=== PATIENT | female | born 1980 | race Caucasian/White ===

== ENCOUNTER 2019-08-24 20:15 | Inpatient (IN) | payer OTHER ==
[2019-08-24] MEDS ORDERED: ALBUTEROL SO4 2.5/IPRATROPIUM 0.5 INH SOL 3 ML VIAL.NEB. NEB ONE ×5 (20:26→22:40)
--- NOTE | 2019-08-24 20:28 | PDOC ---
Rapid Medical Evaluation Chief Complaint: Respiratory Time Seen by Provider: 08/24/19 20:23 Medical Evaluation: Allergies Allergy/AdvReac Type Severity Reaction Status Date / Time No Known Allergies Allergy Verified 08/24/19 20:18 Vital Signs Temp Pulse Resp BP Pulse Ox 99.0 F 122 H 20 125/82 95 08/24/19 20:22 08/24/19 20:22 08/24/19 20:22 08/24/19 20:22 08/24/19 20:22 08/24/19 20:28 08/24/19 20:24 38 year old female with chest congestion, cough and chest pressure started today. denies fever/ chills. denies recent travel, ocp use PE: wheezing, coarse breaths sounds A: reactive airway?/ bronchitis? chest pain P: chest xray ekg duoneb patient to the ER for further management of care. Discharge Disposition - Diagnosis Shortness of breath - Referrals - Patient Instructions - Post Discharge Activity
--- NOTE | 2019-08-24 20:51 | PDOC ---
Documentation entered by Muriel Ross SCRIBE, acting as scribe for Oly Uriarte DO. Oly Uriarte DO: This documentation has been prepared by the anayibe, Muriel Ross SCRIBE, under my direction and personally reviewed by me in its entirety. I confirm that the documentation accurately reflects all work, treatment, procedures, and medical decision making performed by me. Attending Attestation - Resident Resident Name: Osman Kathleen - ED Attending Attestation I have performed the following: I have examined & evaluated the patient, The case was reviewed & discussed with the resident, I agree w/resident's findings & plan, Exceptions are as noted - HPI HPI: 08/24/19 21:26 The patient is a 38-year-old female with a past medical history significant for HTN who presents to the emergency department with a cough and congestion. The patient presents with several days of runny nose, sore throat, cough, congestion , and decreased appetite. The patient was started on amoxicillin, reports having 3 doses, without relief. Denies diarrhea or abdominal pain. Denies new rashes, recent travel, chest pain, shortness of breath, leg swelling/pain, dysuria. - Physicial Exam PE: 08/24/19 21:21 Constitutional: Awake, alert, oriented. No acute distress. Head: Normocephalic. Atraumatic Eyes: PERRL. EOMI. Conjunctivae are not pale. ENT: Mucous membranes are moist and intact. Posterior pharynx clear without exudate or erythema. Uvula midline. Neck: Supple. Full ROM. No lymphadenopathy. Cardiovascular: +Regular rate, Tachycardia. S1, S2 regular. Pulmonary/Chest: +wheezing and coarse breath side to the left chest, diminished breath sounds on the right. Abdominal: Soft and nondistended. There is no tenderness. Back: No CVA tenderness. Musculoskeletal: No edema. No cyanosis. No clubbing. Full range of motion in all extremities. No calf tenderness/cramping. Skin: Skin is warm and dry. No petechiae. No purpura. Neurological: Alert and oriented to person, place, and time. Cranial nerves II -XII are grossly intact. Normal speech. Strength is grossly symmetric. No sensory deficits. Psychiatric: Good eye contact. Normal interaction, affect and behavior. - Medical Decision Making 08/24/19 21:17 I, Dr. Oly Uriarte, DO, attest that this document has been prepared under my direction and personally reviewed by me in its entirety. I further attest, that it accurately reflects all work, treatment, procedures and medical decision -making performed by me. 08/24/19 21:30 a/p: 38yo female with hx of htn with URI symptoms since wednesday -pt started on amox 125mg yesterday and has had 3 doses - given by PMD -seen at urgent care today - ekg and cxr were "normal" - disk given and sent to rads to upload -pt states rhinorrhea, cough, chest tightness today and wheezing -pt states not feeling better on amox, but instead has decreased appetite -pt arrives tachy -no pleuritic cp -no cp -no leg swelling -wheezing on exam -will send labs, ekg, cxr upload -will give nebs, steroids, ivf hydration -will monitor and reassess 08/24/19 21:35 cxr clear 08/24/19 22:29 wbc 19 pt still with wheezing sob suspect bronchitis that failed outpt therapy will admit for iv abx and nebs, steroids 08/24/19 23:35 will replace potassium resident discussed the case with dequan who accepts pt to service Heart Score/ECG Review - ECG Intrepretation Comment:: 08/24/19 20:50 sinus tach at 120, q waves septally, nl axis, no acute st/t wave findings
[2019-08-24] MEDS ORDERED: methylPREDNISolone NA SUCC 125 MG/2 ML VIAL IVPB ONE (21:07)
[2019-08-24] MEDS ORDERED: SODIUM CHLORIDE 0.9% 1000 ML INFUS.BAG IV ONE (21:07)
[2019-08-24] MEDS ORDERED: ACETAMINOPHEN 1000 MG/100 ML VIAL (NON FORMULARY) IVPB ONE (21:09)
--- NOTE | 2019-08-24 21:24 | PDOC ---
History of Present Illness - General Chief Complaint: Respiratory Stated Complaint: CHEST PAIN Time Seen by Provider: 08/24/19 20:23 - History of Present Illness Initial Comments: 08/24/19 21:16 This is a 38 year old female with PMH significant for HTN. She presented to the ER from home with complaints of chest discomfort, dry cough, nasal congestion, and rhinorrhea for the past 3 nights. Her symptoms started suddenly on Wednesday night, and she had no recent prior illness. She visited her PCP on Wednesday and was prescribed Amoxicillin 125mg, of which she has taken 3 doses. She states that the Amoxicillin has not helped. She visited Urgent Care earlier today, and had an Xray and EKG done, and was referred to the ER. She complains of associated SOB and palpitations, but no fevers, chills, nausea, vomiting, or diarrhea. 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 She takes Nifedipine and Metformin 500mg BID at home , and has had nor recent changes in her medication. She uses an IUD for contraception. Past History - Travel Traveled outside of the country in the last 30 days: No Close contact w/someone who was outside of country & ill: No - Past Medical History Allergies/Adverse Reactions: Allergies Allergy/AdvReac Type Severity Reaction Status Date / Time No Known Allergies Allergy Verified 08/24/19 20:18 COPD: No HTN: Yes - Immunization History Immunization Up to Date: Yes - Psycho Social/Smoking Cessation Hx Smoking History: Never smoked Hx Alcohol Use: No Drug/Substance Use Hx: No Review of Systems - Review of Systems Constitutional: Yes: Loss of Appetite, Weakness. No: Symptoms Reported, See HPI , Chills, Diaphoresis, Fever, Malaise, Night Sweats, Weight Stable, Unintentional Wgt. Loss, Unexplained wgt Loss, Other HEENTM: Yes: Nose Congestion, Throat Pain. No: Symptoms Reported, See HPI, Eye Pain, Blurred Vision, Tearing, Recent change in vision, Double Vision, Cataracts , Ear Pain, Ocular Prothesis, Ear Discharge, Nose Pain, Tinnitus, Nose Bleeding , Hearing Loss, Throat Swelling, Mouth Pain, Dental Problems, Difficulty Swallowing, Mouth Swelling, Other Respiratory: Yes: Cough, Shortness of Breath. No: Symptoms reported, See HPI, Orthopnea, SOB with Exertion, SOB at Rest, Stridor, Wheezing, Productive cough, Hemoptysis, Other Cardiac (ROS): Yes: Palpitations, Chest Tightness. No: Symptoms Reported, See HPI, Chest Pain, Edema, Irregular Heart Rate, Lightheadedness, Syncope, Other : No: Symptoms Reported, See HPI, Burning, Dysuria, Discharge, Frequency, Flank Pain, Hematuria, Incontinence, Pain, Urgency, Testicular Mass, Testicular Swelling, Lesions, Testicular Pain, Other Musculoskeletal: No: Symptoms Reported, See HPI, Back Pain, Gout, Joint Pain, Joint Swelling, Muscle Pain, Muscle Weakness, Neck Pain, Joint Stiffness, Other Integumentary: No: Symptoms Reported, See HPI, Bruising, Change in Color, Change in Hair/Nails, Dryness, Erythema, Flushing, Lesions, Lumps, Pallor, Pruritus, Rash, Sweating, Other Neurological: No: Symptoms reported, See HPI, Headache, Numbness, Paresthesia, Pre-Existing Deficit, Seizure, Tingling, Tremors, Weakness, Unsteady Gait, Ataxia, Dizziness, Other Psychiatric: No: Anxiety, Depression, Frequent Crying, Stressors, Sleep Pattern Change, Emotional Problems, Mood Swings, Change in Appetite, Other Endocrine: No: Symptoms Reported, See HPI, Excessive Sweating, Flushing, Intolerance to Cold, Intolerance to Heat, Increased Hunger, Increased Thirst, Increased Urine, Unexplained Weight Gain, Unexplained Weight Loss, Change in Weight, Other Hematologic/Lymphatic: No: Symptoms Reported, See HPI, Anemia, Blood Clots, Easy Bleeding, Easy Bruising, Bleeding Diathesis, Lymph Node Abnormalities, Swollen Glands, Other *Physical Exam - Vital Signs Last Vital Signs Temp Pulse Resp BP Pulse Ox 99.0 F 122 H 20 125/82 95 08/24/19 20:22 08/24/19 20:22 08/24/19 20:22 08/24/19 20:22 08/24/19 20:22 - Physical Exam General Appearance: Yes: Appropriately Dressed. No: Nourished, Apparent Distress, Disheveled, Mild Distress, Moderate Distress, Severe Distress, Alcohol on Breath, Intoxicated, Cachetic, Obese, Thin, Other HEENT: positive: DENISE, Normal ENT Inspection, Normal Voice, Symmetrical, TMs Normal, Pharynx Normal. negative: EOMI, Pale Conjunctivae, Photophobia, Scleral Icterus (R), Scleral Icterus (L), Muffled/Hoarse voice, Pharyngeal Erythema, Tonsillar Exudate, Tonsillar Erythema, Nasal Congestion, Rhinorrhea, Sinus Tenderness, Orbits, Hearing Decreased, Hearing Grossly Normal, TM Bulging , TM Dull, TM Erythema, Lesions, Ko, Excessive drooling, Thrush, Other Neck: positive: Trachea midline, Normal Thyroid, Supple. negative: Tender, Rigid, Carotid bruit, Decreased range of motion, Stridor, Lymphadenopathy (R), Lymphadenopathy (L), Rigidity, Tender lateral, Tender midline, Thyromegaly, Other Respiratory/Chest: positive: Decreased Breath Sounds, Crackles, Wheezing. negative: Chest Tender, Lungs Clear, Normal Breath Sounds, Respiratory Distress , Accessory Muscle Use, Labored Respiration, Rapid RR, Paradoxal Breathing, Rales, Rhonchi, Stridor, Hyperresonant, Dullness, Plerual Rub, Other Cardiovascular: positive: Regular Rhythm, Tachycardia. negative: Regular Rate, S1, S2, Edema, JVD, Murmur, Bradycardia, Diastolic Murmur, Systolic Murmur, Gallop/S3, Gallop/S4, Irregularly Irregular, Irregular, Other Extremity: positive: Normal Range of Motion Neurologic: positive: sybase developer II-XII NML intact, Fully Oriented, Alert, Normal Mood/ Affect, Normal Response, Motor Strength 5/5 Heart Score/ECG Review - Electrocardiogram EKG: Normal - Age Age: </= 45 - Risk Factors Risk Factors Heart Score: Yes Hx Hypertension - ECG Intrepretation Rhythm: Regular Rhythm - Varina Varina: Normal ED Treatment Course - LABORATORY CBC & Chemistry Diagram: 08/24/19 21:24 08/24/19 21:24 - Medications Given in the ED: ED Medications Discontinued Medications Generic Name Dose Route Start Last Admin Trade Name Freq PRN Reason Stop Dose Admin Albuterol/Ipratropium 1 amp 08/24/19 20:26 08/24/19 20:42 Duoneb - NEB 08/24/19 20:27 1 amp ONCE ONE Administration Medical Decision Making - Medical Decision Making 08/24/19 21:26 #URTI - CXR from Urgent Care reviewed, no infiltrates - Duonebs 2x - CXR from Urgent Care shows no infiltrates - CBC/CMP - UA - Lactic Acid - Flu swab - N/S bolus - Azythromycin - Solu Medrol 125mg - IV Tylenol 08/24/19 22:24 - Reassessed patient, wheezing has decreased and she reports slight improvement in her SOB 08/24/19 22:37 # Sepsis 2/2 Bronchitis - Labs reviewed, WBC 20k, Lactic Acid 2.1 - Will admit based on labs and tachycardia - Starting IV Ceftriaxone 1g and Azithromycin 500mg 08/24/19 23:41 - K 3.3, ordered 40mEQ PO - Signed out to LUKAS Gómez from [facility], admitted under Dr. Villanueva 08/25/19 01:59 - Lactid Acid 2.7 - N/S @ 50 started Discharge - Discharge Information Clinical Impression/Diagnosis: Shortness of breath - Admission Yes - Follow up/Referral - Patient Discharge Instructions - Post Discharge Activity
[2019-08-24] MEDS ORDERED: ACETAMINOPHEN INJECTION 100 ML IVPB ONE (21:25)
[2019-08-24] MEDS ORDERED: methylPREDNISolone NA SUCC 125 MG/2 ML VIAL ONE (21:31)
[2019-08-24 21:35] LABS: PH,URINE 6.5 (5.0-8.0); URINE APPEARANCE CLOUDY; URINE BILIRUBIN NEGATIVE (NEGATIVE); URINE COLOR YELLOW; URINE GLUCOSE (UA) NEGATIVE (NEGATIVE); URINE KETONE NEGATIVE (NEGATIVE); URINE LEUK ESTERASE NEGATIVE (NEGATIVE); URINE NITRITE NEGATIVE (NEGATIVE); URINE PROTEIN NEGATIVE (NEGATIVE); URINE UROBILINOGEN 0.2 mg/dL (0.2-1.0)
[2019-08-24 21:42] LABS: BASO % 0.1 % (0-2.0); EOS % 2.6 % (0-4.5); HEMATOCRIT 39.9 % (32.4-45.2); HEMOGLOBIN 13.7 GM/dL (10.7-15.3); LYMPH % 19.2 % (8-40); MCH 29.4 pg (25.7-33.7); MCHC 34.5 g/dl (32.0-36.0); MEAN CELL VOLUME 85.3 fl (80-96); MEAN PLT VOLUME 7.7 fl (7.5-11.1); MONO % 6.3 % (3.8-10.2); NEUT % 71.8 % (42.8-82.8); PLATELET COUNT 315 K/MM3 (134-434); RBC 4.68 M/mm3 (3.60-5.2); RDW 13.5 % (11.6-15.6); WHITE BLOOD COUNT 19.8 K/mm3 (4.0-10.0)
[2019-08-24 22:13] LABS: ALBUMIN 4.2 g/dl (3.4-5.0); BILIRUBIN,TOTAL 0.9 mg/dL (0.2-1); BLOOD UREA NITROGEN 8.2 mg/dL (7-18); CALCIUM 9.1 mg/dL (8.5-10.1); CREATININE 0.9 mg/dL (0.55-1.3); POTASSIUM 3.3 mmol/L (3.5-5.1)
[2019-08-24] MEDS ORDERED: CEFTRIAXONE 1 GM in DEXTROSE 5%-WATER - 100 ML IVPB ONE (22:29)
[2019-08-24] MEDS ORDERED: AZITHROMYCIN IVPB 500 MG in DEXTROSE 5%-WATER - 250 ML IVPB ONE (22:30)
[2019-08-24] MEDS ORDERED: CEFTRIAXONE 1 GM/50 ML BAG ONE (23:01)
[2019-08-24] MEDS ORDERED: POTASSIUM CHLORIDE TABS 10 MEQ TABLET.ER (FP) PO ONE (23:35)
[2019-08-24] MEDS ORDERED: AZITHROMYCIN IVPB 500 MG/250 ML BAG IVPB ONE (23:53)
[2019-08-24] MEDS ORDERED: POTASSIUM CHLORIDE TABS 20 MEQ TABLET.ER (FP) PO ONE (23:53)
--- NOTE | 2019-08-25 00:07 | HP ---
Admitting History and Physical - Primary Care Physician PCP: Dr. Villanueva - Admission Chief Complaint: cough/congestion for 4 days History of Present Illness: 38 year old female with PMH of HTN and ? Diabetes arrived to ED for chest pressure, dry cough, nasal congestion, and rhinorrhea for past 4 days. As per patient symptoms started Wednesday night with stuffy nose, sinus problems visited PCP on Wednesday and was prescribed Amoxicillin,of which she has taken 3 doses without relief. Symptoms got worse with body aches, weakness so went to Urgent Care today, Xray and EKG done, and referred to the ER. Patient complaining of SOB, palpitations, chest pressure, denies fevers, chills, nausea, vomiting, or diarrhea. History Source: Patient Limitations to Obtaining History: No Limitations - Past Medical History Cardiovascular: Yes: HTN Reproductive: Yes: Other (Gestational diabetes) - Past Surgical History Past Surgical History: Yes: None - Smoking History Smoking history: Never smoked Have you smoked in the past 12 months: No - Alcohol/Substance Use Hx Alcohol Use: No History of Substance Use: reports: None - Social History ADL: Independent History of Recent Travel: No Home Medications - Allergies Allergies/Adverse Reactions: Allergies Allergy/AdvReac Type Severity Reaction Status Date / Time No Known Allergies Allergy Verified 08/24/19 20:18 Family Medical History Family History: Denies Review of Systems - Review of Systems Constitutional: reports: Malaise Eyes: reports: No Symptoms HENT: reports: Nasal Congestion, Throat Pain, Other (Rhinorrhea) Neck: reports: No Symptoms Cardiovascular: reports: Other (chest pressure,) Respiratory: reports: Cough, SOB Gastrointestinal: reports: No Symptoms Genitourinary: reports: No Symptoms Musculoskeletal: reports: No Symptoms Integumentary: reports: No Symptoms Neurological: reports: No Symptoms Endocrine: reports: No Symptoms Hematology/Lymphatic: reports: No Symptoms Psychiatric: reports: No Symptoms Physical Examination Vital Signs: Vital Signs Temperature 98.3 F 08/24/19 22:46 Pulse Rate 103 H 08/24/19 22:46 Respiratory Rate 20 08/24/19 22:46 Blood Pressure 134/84 08/24/19 22:46 O2 Sat by Pulse Oximetry (%) 97 08/24/19 22:46 Constitutional: Yes: No Distress, Calm Eyes: Yes: Conjunctiva Clear, EOM Intact HENT: Yes: Atraumatic, Normocephalic Neck: Yes: Supple, Trachea Midline Cardiovascular: Yes: Regular Rate and Rhythm, Tachycardia Respiratory: Yes: Regular, CTA Bilaterally, Wheezes Gastrointestinal: Yes: Normal Bowel Sounds, Soft Musculoskeletal: Yes: WNL Extremities: Yes: WNL Edema: No Integumentary: Yes: WNL Neurological: Yes: Alert, Oriented Labs: CBC, BMP 08/24/19 21:24 08/24/19 21:24 Imaging - Results Chest X-ray: Report Reviewed (- PER ED NOTE "CXR from Urgent Care shows no infiltrates") EKG: Report Reviewed (Sinsus tachy @120, no s/t changes) Problem List - Problems (1) Septic bronchitis Code(s): J00 - ACUTE NASOPHARYNGITIS [COMMON COLD] (2) Hypokalemia Code(s): E87.6 - HYPOKALEMIA (3) HTN (hypertension) Code(s): I10 - ESSENTIAL (PRIMARY) HYPERTENSION Assessment/Plan 38 year old female with PMH of HTN and ? Diabetes arrived to ED for chest pressure, dry cough, nasal congestion, and rhinorrhea for past 4 days. Patient was on Amoxicillin 125 mg for 3 dose without relief as prescribed by PCP, patient today went to urgent EKG and CXR was done and referred to ED. # Sepsis # Bronchitis - CXR from Urgent Care shows no infiltrates - EKG: Sinus tachy, no s/t changes wbc: 19.8, lactic #1: 2.1, pending #2 - UA negative - Influenza A&B negative -In ED given antipyretics, nebs, steroids, ceftriaxone x1, and IVF - continue with ceftriaxone 1 g daily - Continue with nebulizer q 6 hours - continue with methylprednisolone 40 mg q 8 hours - continue with IVF NS x 24 hours - follow up cbc, bmp in AM - follow up ID in AM #Hypokalemia - K+: 3.3 - replace with kcl 40meq IV - follow BMP in AM # HTN - Continue with nifedipine ( does not remember dose will call in Am and confirm with nurse) - monitor vitals # ? DM - patient states had gestational diabetes, was given metformin 500mg BID, its been over a year now - monitor FSBS AC QD - follow up [id number] Visit type - Emergency Visit Emergency Visit: Yes ED Registration Date: 08/24/19 Care time: The patient presented to the Emergency Department on the above date and was hospitalized for further evaluation of their emergent condition. - New Patient This patient is new to me today: Yes Date on this admission: 08/25/19 - Critical Care Critical Care patient: No
[2019-08-25] MEDS ORDERED: IPRATROPIUM BR 0.02% 0.5 MG/2.5 ML VIAL.NEB. NEB PRN (00:47)
[2019-08-25] MEDS ORDERED: SODIUM CHLORIDE 1,000 ML IV SCH ×2 (01:00→16:55)
[2019-08-25] MEDS ORDERED: SODIUM CHLORIDE 0.9% 1000 ML INFUS.BAG IV ONE (01:16)
[2019-08-25 02:57] VITALS: BMI 30.2
[2019-08-25] MEDS: methylPREDNISolone NA SUCC 40 MG/1 ML VIAL IVPUSH SCH ×3 (03:05→21:59)
[2019-08-25] MEDS: ACETAMINOPHEN 325 MG TABLET (FP) PO PRN ×3 (05:48→17:14)
[2019-08-25 07:24] LABS: HEMATOCRIT 36.8 % (32.4-45.2); HEMOGLOBIN 12.9 GM/dL (10.7-15.3); MCH 29.9 pg (25.7-33.7); MCHC 35.1 g/dl (32.0-36.0); MEAN CELL VOLUME 85.2 fl (80-96); MEAN PLT VOLUME 7.9 fl (7.5-11.1); PLATELET COUNT 314 K/MM3 (134-434); RBC 4.32 M/mm3 (3.60-5.2); RDW 13.4 % (11.6-15.6); WHITE BLOOD COUNT 12.7 K/mm3 (4.0-10.0)
[2019-08-25 07:37] LABS: BLOOD UREA NITROGEN 9.2 mg/dL (7-18); CALCIUM 9.1 mg/dL (8.5-10.1); CREATININE 0.9 mg/dL (0.55-1.3); POTASSIUM 4.2 mmol/L (3.5-5.1)
[2019-08-25] MEDS ORDERED: cefTRIAXone SODIUM 1 GM VIAL ONE (09:02)
[2019-08-25] MEDS ORDERED: DEXTROSE 5%-WATER - 50 ML IVPB ONE (09:03)
[2019-08-25] MEDS ORDERED: CEFTRIAXONE 1 GM in DEXTROSE 5%-WATER - 50 ML IVPB SCH (10:00)
--- NOTE | 2019-08-25 10:03 | PN ---
Progress Note (short form) - Note Progress Note: ID consult dictated on Wednesday she had nasal congestion Wednesday worse with "sinus" infection Wednesday saw Dr Zuluaga reports throat culture done, given Amox felt worse with cough, chest congestion, weakness no fevers some throat pain went to urgicenter had cxray and EKG ws tachycardic and told to go to ER in ED was noted to be wheezing- given steroids and nebs started on ceftraixone and zithromax feels better this am not wheezing influenza screen negative cxray loaded in our radiology computer- I reviewed the film (not available on [employer]) with Dr Sarmiento no infiltrate probable bronchiits- ?viral, ?bacterial will send viral PCR, continue zithromax bronchospasm with bronchitis continue steroids/nebs no value to blood cultures as she has already been started on antibiotics by the ER f/u throat culture with Dr zuluaga (still pending)-doubt strep throat clinically improved history of HTN history of insulin resistance Problem List - Problems (1) Bronchitis Code(s): J40 - BRONCHITIS, NOT SPECIFIED ACUTE OR CHRONIC (2) Bronchospasm with bronchitis, acute Code(s): J20.9 - ACUTE BRONCHITIS, UNSPECIFIED
[2019-08-25] MEDS: AZITHROMYCIN 250 MG TABLET PO SCH (12:12)
--- NOTE | 2019-08-25 12:51 | PN ---
Progress Note, Physician - Current Medication List Current Medications: Active Medications Acetaminophen (Tylenol -) 650 mg PO Q4H PRN PRN Reason: PAIN OR FEVER Last Admin: 08/25/19 05:48 Dose: 650 mg Albuterol Sulfate (Ventolin 0.083% Nebulizer Soln -) 1 amp NEB Q6H PRN PRN Reason: SHORT OF BREATH/WHEEZING Azithromycin (Zithromax -) 250 mg PO DAILY [facility]IGUEL Last Admin: 08/25/19 12:12 Dose: 250 mg Sodium Chloride (Normal Saline -) 1,000 mls @ 50 mls/hr IV ASDIR JOSÉ MIGUEL Stop: 08/26/19 00:49 Last Admin: 08/25/19 03:05 Dose: 50 mls/hr Ipratropium [place] (Atrovent 0.02% Nebulizer -) 1 amp NEB Q6H PRN PRN Reason: WHEEZING Methylprednisolone Sodium Succinate (Solu-Medrol -) 40 mg IVPUSH Q8H-IV JOSÉ MIGUEL Last Admin: 08/25/19 09:35 Dose: 40 mg - Objective Vital Signs: Vital Signs Temperature 98.6 F 08/25/19 09:44 Pulse Rate 95 H 08/25/19 09:44 Respiratory Rate 18 08/25/19 09:44 Blood Pressure 156/60 08/25/19 09:44 O2 Sat by Pulse Oximetry (%) 96 08/25/19 09:00 Constitutional: Yes: Calm Cardiovascular: Yes: Regular Rate and Rhythm, S1, S2 Respiratory: Yes: CTA Bilaterally Gastrointestinal: Yes: Normal Bowel Sounds, Soft Edema: No Neurological: Yes: Alert, Oriented Labs: CBC, BMP 08/25/19 06:30 08/25/19 06:30 Problem List - Problems (1) Bronchitis Assessment/Plan: azithromycin ivf leukocytosis trending down repeat lactic acid if better then dc home iv medrol today then stop Code(s): J40 - BRONCHITIS, NOT SPECIFIED ACUTE OR CHRONIC
--- NOTE | 2019-08-25 14:08 | EKG ---
Test Reason : Blood Pressure : / mmHG Vent. Rate : 120 BPM Atrial Rate : 120 BPM P-R Int : 164 ms QRS Dur : 064 ms QT Int : 326 ms P-R-T Axes : 067 -06 050 degrees QTc Int : 460 ms SINUS TACHYCARDIA SEPTAL INFARCT , AGE UNDETERMINED ABNORMAL ECG WHEN COMPARED WITH ECG OF 29-JAN-2009 18:00, VENT. RATE HAS INCREASED BY 48 BPM SEPTAL INFARCT IS NOW PRESENT Confirmed by EARLE GORMAN, ADONIS ([id number]) on 08/25/2019 2:07:56 PM Referred By: Confirmed By:ADONIS OG MD
[2019-08-25] MEDS: NIFEdipine E.R. 30 MG TABLET (FP) PO SCH (14:18)
--- NOTE | 2019-08-25 16:04 | DS ---
Physical Examination Vital Signs: Vital Signs Temperature 98.6 F 08/25/19 13:00 Pulse Rate 92 H 08/25/19 13:00 Respiratory Rate 18 08/25/19 13:00 Blood Pressure 134/88 08/25/19 13:00 O2 Sat by Pulse Oximetry (%) 96 08/25/19 09:00 Constitutional: Yes: Calm Cardiovascular: Yes: Regular Rate and Rhythm, S1, S2 Respiratory: Yes: CTA Bilaterally Gastrointestinal: Yes: Normal Bowel Sounds, Soft Edema: No Neurological: Yes: Alert, Oriented Labs: CBC, BMP 08/25/19 06:30 08/25/19 06:30 Discharge Summary Problems reviewed: Yes Reason For Visit: BRONCHITIS Current Active Problems Bronchitis (Acute) Bronchospasm with bronchitis, acute (Acute) HTN (hypertension) (Acute) Hypokalemia (Acute) Septic bronchitis (Acute) Shortness of breath (Acute) Hospital Course: - Primary Care Physician PCP: Dr. Villanueva - Admission Chief Complaint: cough/congestion for 4 days History of Present Illness: 38 year old female with PMH of HTN and ? Diabetes arrived to ED for chest pressure, dry cough, nasal congestion, and rhinorrhea for past 4 days. As per patient symptoms started Wednesday night with stuffy nose, sinus problems visited PCP on Wednesday and was prescribed Amoxicillin,of which she has taken 3 doses without relief. Symptoms got worse with body aches, weakness so went to Urgent Care today, Xray and EKG done, and referred to the ER. Patient complaining of SOB, palpitations, chest pressure, denies fevers, chills, nausea, vomiting, or diarrhea. seen by ID on abx elevated lactic acid leukocytosis trending down Condition: Improved - Instructions Referrals: Jakob Villanueva MD [Staff Physician] - 1 Week
[2019-08-25] MEDS: ALBUTEROL SO4 0.083% IH SOL 2.5 MG/3 ML VIAL.NEB. NEB PRN (22:15)
[2019-08-26] MEDS ORDERED: MELATONIN 5 MG TABLETS PO PRN (01:58)
[2019-08-26 06:07] VITALS: TEMP 98.1
[2019-08-26] MEDS: ALBUTEROL SO4 0.083% IH SOL 2.5 MG/3 ML VIAL.NEB. NEB PRN (07:35)
--- NOTE | 2019-08-26 10:42 | PN ---
Progress Note, Physician Chief Complaint: Bronchitis History of Present Illness: Previous notes and events reviewed awake and alert NAD denies SOB or chest pain complain of dry cough DOWNTREND IN [place] 1.6 - Current Medication List Current Medications: Active Medications Acetaminophen (Tylenol -) 650 mg PO Q4H PRN PRN Reason: PAIN OR FEVER Last Admin: 08/25/19 17:14 Dose: 650 mg Albuterol Sulfate (Ventolin 0.083% Nebulizer Soln -) 1 amp NEB Q6H PRN PRN Reason: SHORT OF BREATH/WHEEZING Last Admin: 08/26/19 07:35 Dose: 1 amp Azithromycin (Zithromax -) 250 mg PO DAILY [facility] Last Admin: 08/25/19 12:12 Dose: 250 mg Sodium Chloride (Normal Saline -) 1,000 mls @ 75 mls/hr IV ASDIR [facility] Last Admin: 08/25/19 17:13 Dose: Not Given Ipratropium [place] (Atrovent 0.02% Nebulizer -) 1 amp NEB Q6H PRN PRN Reason: WHEEZING Last Admin: 08/26/19 07:35 Dose: 1 amp Melatonin (Melatonin) 5 mg PO HS PRN PRN Reason: INSOMNIA Last Admin: 08/26/19 02:11 Dose: 5 mg Methylprednisolone Sodium Succinate (Solu-Medrol -) 40 mg IVPUSH BID [facility] Last Admin: 08/25/19 21:59 Dose: 40 mg Nifedipine (Procardia Xl -) 30 mg PO DAILY [facility] Last Admin: 08/25/19 14:18 Dose: 30 mg - Objective Vital Signs: Vital Signs Temperature 98.1 F 08/26/19 05:00 Pulse Rate 83 08/26/19 05:00 Respiratory Rate 18 08/26/19 05:00 Blood Pressure 138/97 08/26/19 05:00 O2 Sat by Pulse Oximetry (%) 100 08/25/19 20:58 Constitutional: Yes: No Distress, Calm Eyes: Yes: Conjunctiva Clear HENT: Yes: Atraumatic Cardiovascular: Yes: Regular Rate and Rhythm Respiratory: Yes: Regular, Wheezes Gastrointestinal: Yes: Normal Bowel Sounds, Soft Musculoskeletal: Yes: WNL Extremities: Yes: WNL Edema: No Neurological: Yes: Alert, Oriented Psychiatric: Yes: Alert, Oriented Labs: CBC, BMP 08/25/19 06:30 08/25/19 06:30 Problem List - Problems (1) Bronchitis Assessment/Plan: -Azithromycin -bronchodilators -Medrol changed to tapering prednisone -[place] 1.6 Code(s): J40 - BRONCHITIS, NOT SPECIFIED ACUTE OR CHRONIC (2) HTN (hypertension) Assessment/Plan: -Nifedipine -low Na diet Code(s): I10 - ESSENTIAL (PRIMARY) HYPERTENSION Assessment/Plan discharge home today, downtrend in [place]
[2019-08-26] MEDS: methylPREDNISolone NA SUCC 40 MG/1 ML VIAL IVPUSH SCH (10:50)
[2019-08-26] MEDS: ACETAMINOPHEN 325 MG TABLET (FP) PO PRN (10:50)
[2019-08-26] MEDS: NIFEdipine E.R. 30 MG TABLET (FP) PO SCH (10:50)
[2019-08-26] MEDS: AZITHROMYCIN 250 MG TABLET PO SCH (10:50)
[2019-08-26 14:06] VITALS: BP 125/86; PULSE 92
== END 2019-08-26 14:21 | disposition home or self-care (01) | DRG 144 ==
LOC: JER 20:15 → JERBED 22:42 → J4W 08-25 02:11
PROVIDERS: ADMIT Family Medicine; ATTEND Family Medicine
DX: J20.8 Acute bronchitis due to other specified organisms (principal); I10 Essential (primary) hypertension; E87.6 Hypokalemia
CPT/HCPCS: 36415; 80048; 80053; 81003; 82550; 82553; 82962; 83036; 83605; 83880; 84484; 84703; 85025; 85027; 87633; 87804; 93005; 93010; 94640; 99284-25; J0131; J7030